=== PATIENT | male | born 1995 | race Caucasian/White ===

== ENCOUNTER 2019-06-02 15:04 | Emergency (ER) | payer OTHER ==
[~2019-06-02] VITALS: Ht 165.1 cm; Wt 76.9 kg
[2019-06-02 15:16] VITALS: BP 156/114
--- NOTE | 2019-06-02 15:19 | NUR ---
WAIT AT LOBBY
--- NOTE | 2019-06-02 16:28 | NUR ---
24 Y/O MALE PRESENTS WITH LACERATION OF 4TH AND 5TH DIGIT ON LEFT HAND. 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 WENT TO URGENT CARE BUT THEY REFFERED THEM TO COME TO AN ER. TWO FINGERS ARE CURRENTLY WRAPPED IN GAUZE AND BLEEDING IN CONTROLLED. FULL ROM +, CMS+. RADIAL PULSES +2 BILAT UPPER EXTREMITIES. DENIES SOB/CP. AAOX4 NO PMH NKA
[2019-06-02] MEDS ORDERED: BACITRACIN OINT 500 UNITS/GM PKT TP ONE (17:45)
[2019-06-02 17:58] VITALS: BP 145/79
--- NOTE | 2019-06-02 17:58 | NUR ---
Patient discharged with v/s stable. Written and verbal after care instructions given and explained. Patient alert, oriented and verbalized understanding of instructions. Ambulatory with steady gait. All questions addressed prior to discharge. ID band removed. Patient advised to follow up with PMD. Rx of IBUPROFEN, BACITRACIN given. Patient educated on indication of medication including possible reaction and side effects. Opportunity to ask questions provided and answered.
== END 2019-06-02 17:58 | disposition home or self-care (01) ==
LOC: MED 15:04
DX: S61.207A Unspecified open wound of left little finger without damage to nail, initial encounter (principal); S61.208A Unspecified open wound of other finger without damage to nail, initial encounter; W27.8XXA Contact with other nonpowered hand tool, initial encounter; Y93.89 Activity, other specified; Y92.89 Other specified places as the place of occurrence of the external cause; Y99.0 Civilian activity done for income or pay
CPT/HCPCS: 73130; 99283